=== PATIENT | female | born 1940 | race Caucasian/White ===

== ENCOUNTER 2021-08-27 10:56 | Outpatient (CLI) | payer MEDICARE, BC, SELFPAY ==
--- NOTE | ~2021-08-27 | US_ITS ---
EXAMINATION: US retroperitoneal comp DATE: 08/27/2021 11:44 INDICATION: Chronic cystitis without hematuria TECHNIQUE: Multiple ultrasound grayscale images of the kidneys were obtained. COMPARISON: None. FINDINGS: The right kidney measures 10.6 x 4.0 x 5.1 cm. The left kidney measures 11.7 x 4.5 x 6.5 cm. The kidn eys demonstrate normal echogenicity. Mild left hydronephrosis. 1.9 cm anechoic likely parapelvic cyst at the lower pole of the left kidney. No hydronephrosis at the right kidney. No stones identified. The bladder is normal with bilateral ureteral jets visualized on color Doppler. IMPRESSION: 1. Mild left hydronephrosis of indeterminate etiology with bilateral ureteral jets visualized in the bladder. Reviewed, dictated and finalized at location A.
== END 2021-08-27 10:57 | disposition home or self-care (01) ==
PROVIDERS: PCP Internal Medicine Infectious Disease; Visit Provider Nurse Practitioner Adult Health
DX: N13.30 Unspecified hydronephrosis (principal); N28.1 Cyst of kidney, acquired
CPT/HCPCS: 76770

== ENCOUNTER 2021-09-03 10:58 | Outpatient (CLI) | payer MEDICARE, BC, SELFPAY ==
--- NOTE | ~2021-09-03 | XR_ITS ---
EXAMINATION: XR abdomen/kub 1V EXAM DATE: 09/03/2021 11:21 INDICATION: Gross hematuria. TECHNIQUE: Frontal projection(s) of the abdomen for interpretation. Correlation is made to CT abdomen pelvis earlier same day. FINDINGS: There is expected amount of colonic stool and gas. No small bowel dilation, nonobstructiv e bowel gas pattern. Scattered calcifications, vascular. There is no organomegaly suspected. The bones are unremarkable. IMPRESSION: Unremarkable abdomen x-ray exam. Reviewed, dictated and finalized at location A.
--- NOTE | ~2021-09-03 | CT_ITS ---
EXAMINATION: CT abdomen pelvis wo/w con EXAM DATE: 09/03/2021 11:52 INDICATION: Gross hematuria. TECHNIQUE: Spiral CT of the abdomen and pelvis was performed without contrast. The patient was then injected with small bolus intravenous Omnipaque 350, followed by delay of approximately 10 minutes to allow collecting system to opacify. A post contrast scan abdomen and pelvis was performed during inj ection of remaining contrast. A total of 130 cc intravenous contrast was administered. The dose-april th product (DLP) for this examination was 1142.04 mGy-cm. The exposure was tailored according to pat ient size (auto mA exposure control), and iterative reconstruction (ASIR) was used as additional dose reduction technique. There is no prior study for comparison. 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 Right-sided pelvic calcification at the inlet which is visualized on KUB is gonadal vein phlebolith. There is no hydronephrosis or nephrolithiasis. Scattered renal cysts, largest about 2 cm on the right. Scattered bilateral renal peripelvic cysts. The kidneys enhance symmetrically. There are no suspicious renal lesions. The calyces and opacified portions of ureters are unremarkable, without filling defects or focal suspicious strictures. The bladder has small linear filling defects along the inferior margin, suspected most likely something related to the turbulence from inflowing ureteral jets causing nonop acified contrast to enter the more dependent layering contrast. No suspicion of bladder cancer. Diffu sely trabecular bladder wall could be some component of chronic cystitis. The uterus is not identifie d and has likely been surgically resected. Scattered liver cysts up to 4 cm. There are 6 and 12 mm pancreatic cystic regions. The differential d iagnosis includes pseudocyst, intraductal papillary mucinous neoplasm (IPMN), mucinous cystic neoplas m (MCN), and the less common serous cystadenoma and neuroendocrine tumor. Correlate for history of pa ncreatitis. Gallbladder is unremarkable. No biliary obstruction. There is no retroperitoneal or pe lvic lymphadenopathy. There is mild scattered arteriosclerotic disease. There is mild scattered colonic diverticulosis. There is no adjacent inflammatory change to suggest diverticulitis. The appendix is normal. The stomach and small bowel are unremarkable. There is expe cted amount of colonic stool. No free intraperitoneal gas. The heart is normal in size. There ar e no pericardial or pleural effusions. Some basilar subsegmental scarring. There are no osteoblasti c or osteolytic lesions identified. IMPRESSION: 1. Bladder wall trabeculation could indicate chronic cystitis. No findings suspicious for cancer. 2. Two small pancreatic cystic lesions. Consider one-year follow-up CT. 3. Small right renal hilar aneurysm. 4. Small basilar postinfectious residua. Reviewed, dictated and finalized at location A. IMPRESSION: 1. Bladder wall trabeculation could indicate chronic cystitis. No findings elise picious for cancer. 2. Two small pancreatic cystic lesions. Consider one-year follow-up CT. 3. Small right renal hilar aneurysm. 4. Small basilar postinfectious residua.
[2021-09-03 11:31] LABS: Estimated Glomerular Filt Rate 60
== END 2021-09-03 10:59 | disposition home or self-care (01) ==
LOC: ANHIMG 11:00
PROVIDERS: PCP Internal Medicine Infectious Disease; Visit Provider Nurse Practitioner Adult Health
DX: R31.0 Gross hematuria (principal)
CPT/HCPCS: 74018; 74178; Q9967